=== PATIENT | female | born 1990 | race Caucasian/White ===

== ENCOUNTER 2018-07-30 10:38 | Emergency (ER) | payer OTHER ==
[~2018-07-30] VITALS: Ht 160 cm; Wt 105.2 kg
[~2018-07-30 10:38] MED LIST: APAP/HYDROCODON1 T13 PO; COL100 PO; COLACE100 MG PO; DULCOLAX5 MG PO; KETOROLAC TROME10 MG PO; MYL80 CH; NORCO1 TA2 PO
[2018-07-30 10:52] VITALS: Ht 160 cm; Wt 105.2 kg
[2018-07-30 12:20] VITALS: BP 121/81
== END 2018-07-30 12:21 | disposition home or self-care (01) ==
LOC: ED 10:38
DX: S93.601A Unspecified sprain of right foot, initial encounter (principal); Z90.89 Acquired absence of other organs; Z90.49 Acquired absence of other specified parts of digestive tract; X58.XXXA Exposure to other specified factors, initial encounter; Y93.89 Activity, other specified; Y92.89 Other specified places as the place of occurrence of the external cause; Y99.8 Other external cause status
CPT/HCPCS: Q0092

== ENCOUNTER 2019-02-28 10:26 | Emergency (ER) | payer OTHER ==
[2019-02-28 11:50] VITALS: BP 119/47
== END 2019-02-28 11:50 | disposition home or self-care (01) ==
LOC: ED 10:26
DX: S46.911A Strain of unspecified muscle, fascia and tendon at shoulder and upper arm level, right arm, initial encounter (principal); M46.96 Unspecified inflammatory spondylopathy, lumbar region; Z98.890 Other specified postprocedural states; Z87.19 Personal history of other diseases of the digestive system; X50.0XXA Overexertion from strenuous movement or load, initial encounter; Y92.89 Other specified places as the place of occurrence of the external cause; Y99.8 Other external cause status